=== PATIENT | female | born 1975 | race Caucasian/White ===

== ENCOUNTER 2025-04-28 14:56 | Outpatient (AMB) | payer OTHER, SELFPAY ==
--- NOTE | 2025-04-28 15:48 | A.OFFPC_ITS ---
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 patient was a spot on right side of nose. 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 ?? Prior PCP:? [facility] Last office visit/CPE:? 3 yrs ago Acute issue(s):? Spot on Side of nose ? Thyroid function ?? PMHx:? 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 1. Little interest or pleasure in doing things: not at all 2. Feeling down, depressed, or hopeless: not at all 3. Trouble falling or staying asleep, or sleeping too much: not at all 4. Feeling tired or having little energy: not at all 5. Poor appetite or overeating: not at all 6. Feeling bad about yourself - or that you are a failure or have let yourself or your family down: not at all 7. Trouble concentrating on things, such as reading the newspaper or watching television: not at all 8. Moving or speaking so slowly that other people could have noticed. Or the opposite - being so fidgety or restless that you have been moving around a lot more than usual: not at all 9. Thoughts that you would be better off or of hurting yourself in some way: not at all Total score: 0 Depression Screening Interpretation: Negative Depression Screening Done: Yes 89005 - PHQ-9 Billing: Yes Source: Developed by Drs. Walter Youngblood, Michela Higuera, Neymar Rahman and colleagues, with an educational hilary from [employer]. Thrive Questionnaire Date Thrive assessed: 04/28/25 I am a: Patient What is your living situation today?: I have a steady place to live Within the past 12 months, did the food you bought not last and you didn't have the money to get more?: Never true Within the past 12 months, did you worry whether your food would run out before you got money to buy more?: Never true Do you have trouble paying for medicines?: I choose not to answer this question Do you have trouble getting transportation to medical appointments?: No Do you have trouble paying your heating and electricity bill?: I choose not to answer this question Do you have trouble taking care of your child, family member or friend?: No Do you have trouble with day-to-day activities such as bathing, preparing meals, shopping, managing finances, etc.?: No Are you currently unemployed and looking for a job?: No Are you interested in more education?: No Please select the resources that you would like help with: None Currently or been in a relationship where the following occur: No concerns reported THRIVE Score: 0 AUDIT C Alcohol Use Questionnaire (AUDIT-C) 1. How often do you have a drink containing alcohol?: Monthly or less 2. How many drinks containing alcohol do you have on a typical day when you are drinking?: 1 or 2 3. How often do you have six or more drinks on one occasion?: Never Total Score: 1 WILLIAM-7 AMB Questionnaire WILLIAM-7 Date WILLIAM - 7 assessed: 04/28/25 Feeling nervous, anxious, or on edge: 0 = Not at all Not being able to stop or control worryin = Not at all Worrying too much about different things: 0 = Not at all Trouble relaxin = Not at all Being so restless that it is hard to sit still: 0 = Not at all Becoming easily annoyed or irritable: 0 = Not at all Feeling afraid as if something awful might happen: 0 = Not at all Total WILLIAM-7 score (0-4 normal; 5-9 mild; 10-14 moderate; 15-21 severe): 0 Source: Developed by Drs. Walter Youngblood, Michela Higuera, Neymar Rahman and colleagues, with an educational hilary from [employer]. WILLIAM-7 Assessment Billing WILLIAM-7 Assessment Tool: WILLIAM-7 Assessment 58219 Review of Systems Const Denies chills, Denies fatigue, Denies fever(s), Denies headache(s) and Denies weakness ENT Denies dizziness and Denies headache(s) Card Denies chest pain, Denies lightheadedness, Denies dyspnea and Denies other (Palpitations) Resp Denies cough, Denies dyspnea, Denies wheezing and Denies other ( shortness of breath) Musc Denies numbness and Denies tingling Neuro Denies dizziness, Denies headache(s), Denies numbness, Denies tingling, Denies paresthesias and Denies weakness Psych Denies anxiety and Denies depression Endo Denies fatigue Aller/Immun Denies wheezing Physical exam (Primary Care) Vital Signs: Last Vital Signs Temp 97.8 F 04/28/25 15:55 Pulse 74 04/28/25 15:55 Resp 15 04/28/25 15:55 BP 108/60 04/28/25 15:55 Pulse Ox 100 04/28/25 15:55 Oxygen Delivery Method Room Air 04/28/25 15:55 BMI result Body Mass Index 23.0 Tobacco/Smoking Status: Tobacco use Status Tobacco use date assessed 04/28/25 04/28/25 15:59 Patient Tobacco Use Status Never used Tobacco 04/28/25 15:59 PHQ-9: PHQ-9 Score PHQ-9: Total score 0 04/28/25 16:20 Depression Screening Interpretation: Negative Thrive Assessment: Date of Thrive Assessment Date Thrive assessed 04/28/25 04/28/25 15:59 Currently or been in a relationship where the following occur: No concerns reported Const General: no acute distress and well developed Nutritional Appearance: well nourished Orientation/consciousness: patient oriented x3 HENMT Head: Yes normocephalic and Yes atraumatic Eyes General: appearance normal, both eyes and all related structures Pupils: Equal, round and reactive pupils present EOM: EOMs intact bilaterally Resp Effort & Inspection: normal respiratory effort Auscultation: clear to auscultation bilaterally Cardio Rate: regular rate Rhythm: regular rhythm Heart sounds: S1 normal heart sound present, S2 normal heart sound present, no gallops, no murmurs and no rubs Neuro General: patient oriented x3 and gait normal Cranial nerves: Yes Equal, round and reactive pupils present Psych Affect: normal affect Coding Level of Care Code New Pt Level 3 (98230) Diagnoses History of basal cell cancer Z85.828 Neoplasm of uncertain behavior of skin D48.5 Screening for colon cancer Z12.11 Breast cancer screening by mammogram Z12.31 Screening for cervical cancer Z12.4 History of anemia Z86.2 Laboratory exam ordered as part of routine general medical examination Z00.00 Additional Codes WILLIAM-7 Assessment Billing - WILLIAM-7 Assessment Tool: WILLIAM-7 Assessment 89682 ([id number]) PHQ-9 - 49051 - PHQ-9 Billing: Yes ([id number]) Assessment & Plan Assessment & Plan (1) History of basal cell cancer: Code(s): Z85.828 - Personal history of other malignant neoplasm of skin Category: Medical Plan: History of basal cell cancer and patient has lump/neoplasm on right side of her news referred to dermatology (2) Neoplasm of uncertain behavior of skin: Code(s): D48.5 - Neoplasm of uncertain behavior of skin Category: Medical Plan: as above (3) Screening for colon cancer: Code(s): Z12.11 - Encounter for screening for malignant neoplasm of colon Category: Medical Plan: due for 1st screening colonoscopy referred to Gastroenterology (4) Breast cancer screening by mammogram: Code(s): Z12.31 - Encounter for screening mammogram for malignant neoplasm of breast Category: Medical Plan: mammogram ordered (5) Screening for cervical cancer: Code(s): Z12.4 - Encounter for screening for malignant neoplasm of cervix Category: Medical Plan: patient is not sexually active she has had no abnormal Pap smears in the past and says she has had a least 3 normal Pap smears in the last 10 years she would like to forego Pap smears at this point she will let me know if she changes her mind (6) History of anemia: Code(s): Z86.2 - Personal history of diseases of the blood and blood-forming organs and certain disorders involving the immune mechanism Category: Medical Plan: Check labs (7) History of anemia: Code(s): Z86.2 - Personal history of diseases of the blood and blood-forming organs and certain disorders involving the immune mechanism Category: Medical Plan: .. (8) Laboratory exam ordered as part of routine general medical examination: Code(s): Z00.00 - Encounter for general adult medical examination without abnormal findings Category: Medical Plan patient notes a history of abnormal thyroid lab tests she also notes a normal thyroid ultrasound will check thyroid hormone levels Orders: Orders Complete Blood Count Auto Diff Today Z00.00 - Encounter for general adult medical examination without abnormal findings Microalbumin, Random (w Creat) Today I10 - Essential (primary) hypertension Reticulocyte Count Today Z86.2 - Personal history of diseases of the blood and blood-forming organs and certain disorders involving the immune mechanism Comprehensive [place]. Panel Fast Today Z00.00 - Encounter for general adult medical examination without abnormal findings Lipid Panel Today Z00.00 - Encounter for general adult medical examination without abnormal findings UA CC w/rflx Micro + Cult Today Z00.00 - Encounter for general adult medical examination without abnormal findings Free T4 (Free Thyroxine) Today E03.9 - Hypothyroidism, unspecified Thyroid Stimulating Hormone Today E03.9 - Hypothyroidism, unspecified Triiodothyronine T3 Total Today E03.9 - Hypothyroidism, unspecified MM tomosynthesis screening BI Today Z12.31 - Encounter for screening mammogram for malignant neoplasm of breast IRON PROFILE Today Z86.2 - Personal history of diseases of the blood and blood- forming organs and certain disorders involving the immune mechanism Vitamin B12 and Folate Today E53.8 - Deficiency of other specified B group stefanie mins, Z86.2 - Personal history of diseases of the blood and blood-forming organs and certain disorders involving the immune mechanism Referrals Gastroenterology Referral Z12.11 - Encounter for screening for malignant neoplasm of colon Dermatology Referral D48.5 - Neoplasm of uncertain behavior of skin
[2025-04-28 15:55] VITALS: BP 108/60; PULSE 74; RESP 15; TEMP 36.6; O2SAT 100; BMI 23.0
== END 2025-04-28 16:48 | disposition home or self-care (01) ==
LOC: HO.HMCFM 14:57
PROVIDERS: PCP Family Medicine; Visit Provider Family Medicine
DX: Z85.828 Personal history of other malignant neoplasm of skin (principal); D48.5 Neoplasm of uncertain behavior of skin; Z12.11 Encounter for screening for malignant neoplasm of colon; Z12.31 Encounter for screening mammogram for malignant neoplasm of breast; Z12.4 Encounter for screening for malignant neoplasm of cervix; Z86.2 Personal history of diseases of the blood and blood-forming organs and certain disorders involving the immune mechanism; Z00.00 Encounter for general adult medical examination without abnormal findings

== ENCOUNTER → 2025-04-28 14:56 | Outpatient (BNVA) | payer OTHER, SELFPAY | PROVIDERS: PCP Family Medicine; Visit Provider Family Medicine | DX: Z76.89 Persons encountering health services in other specified circumstances (principal); Z85.828 Personal history of other malignant neoplasm of skin; Z86.2 Personal history of diseases of the blood and blood-forming organs and certain disorders involving the immune mechanism | CPT/HCPCS: 96127 ==

== ENCOUNTER 2025-06-14 08:00 | Outpatient (REF) | payer OTHER, SELFPAY ==
--- OUTSIDE RECORDS SUMMARY | 2025-06-14 08:04 | XMS_ITS | Clinical Summary ---
Author Organization [facility] Address [address] [place] [address] Care Team Providers Care Celebrity Chef Entrepreneur Media Personality Name Role Phone Rossy Yeh DO Primary Care Provider [phone] Surgical History Surgery Date Site/Laterality Comments OTHER SURGICAL HISTORY PROCEDURE: HISTORY OTHER; COMMENT: basal cell carcinoma-right forehead Medical History Medical History Date Comments History of anemia DX:History of anemia Family history of thyroid disorder DX:Family history of thyroid disorder History of basal cell carcin jose raul (BCC) excision DX:History of basal cell car cinoma (BCC) excision Hyperlipidemia 11/26/2022 DX:Hyperlipidemi a; COMMENT: Lab Results Component Value Date CHOL 243 11/22/2022 LDL 165 11/22/2022 HDL 57 11/22/2022 TRIG 106 11/22/2022 Family History Medical History Relation Name Comments Hypertension Brother 1 No Known Problems Brother 2 Prostate cancer Father Thyroid disease Father Hypertension Mother Relation Name Status Comments Brother 1 Alive Brother 2 Alive Father Alive Maternal Grandfather Maternal Grandmother Mother Alive Paternal Grandfather Paternal Grandmother Social History Tobacco Use Types Packs/Day Years Used Date Smoking Tobacco: Never Smokeless Tobacco: Never Alcohol Use Standard Drinks/Week Comments Yes 0 (1 standard drink = 0.6 oz pur e alcohol) Comments Unknown Sex and Gender Information Value Date Recorded Sex Assigned at Not on file Legal Sex Female 8:30 AM EDT Gender Identity Not on file Sexual Orientation Not on file Obstetrics History Last Filed Vital Signs Vital Sign Reading Time Taken Comments Blood Pressure 110/66 07/18/2023 1:01 PM EDT Pulse 81 07/18/2023 1:01 PM EDT Temperature - - Respiratory Rate - - Oxygen Saturation - - Inhaled Oxygen Concentration - - Weight 66.8 kg (147 lb 3.2 oz) 07/18/2023 1:01 P M EDT Height 165.1 cm (5' 5 ) 07/18/2023 1:01 PM EDT Body Mass Index 24.5 07/18/2023 1:01 PM EDT Plan of Treatment Health Maintenance Due Date Last Done Comments Breast Cancer Screening 1973 DTaP,Tdap,and Td Vaccines (1 - Tdap) 1992 Hepatitis B Vaccines (1 of 3 - 19+ 3-dose series) 1992 Cervical Cancer Screening: P ap Smear 1994 Cholesterol Screening (Lipid Panel) 08/06/2022 Colorectal Cancer Screening: Colonoscopy 08/06/2022 Depression Screening 08/06/2022 HIV Screening 08/06/2022 Hepatitis C Screening 08/06/2022 Social Influencers of Health Screening 08/06/2022 Pneumococcal Vaccine: 50+ Ye ars (1 of 1 - PCV) 2023 Zoster Vaccines (1 of 2) 2023 COVID-19 Vaccine (1 - 2023-2 5 season) 2024 Influenza Vaccine (#1) 2025 HIB Vaccines Aged Out No longer eligi ble based on patient's age to complete this topic HPV Vaccines Aged Out No longer eligi ble based on patient's age to complete this topic Hepatitis A Vaccines Aged Out No long er eligible based on patient's age to complete this topic IPV Vaccines Aged Out No longer eligi ble based on patient's age to complete this topic MMR Vaccines Aged Out No longer eligi ble based on patient's age to complete this topic Meningococcal ACWY Vaccine Aged Out N o longer eligible based on patient's age to complete this topic Meningococcal B Vaccine Aged Out No l onger eligible based on patient's age to complete this topic RSV Immunization Patients Un cedric 20 months Aged Out No longer eligible b ased on patient's age to complete this topic Varicella Vaccines Aged Out No longer eligible based on patient's age to complete this topic Care Teams Celebrity Chef Entrepreneur Media Personality Relationship Specialty Start Date End Date Rossy Yeh DO [address] [place] [address] PCP - General 07/01/22
[2025-06-14 10:19] LABS: MANUAL DIFF FLAG NO
[2025-06-14 10:21] LABS: Appearance Urine Clear; Glucose Urine UA Negative (Negative); PH 7.5 (5.0-9.0); Specific Gravity - Urine <= 1.005 (1.005-1.025)
[2025-06-14 10:45] LABS: Hematocrit 37.8 % (37.0-47.0); Hemoglobin 12.6 g/dl (12.0-16.0); Imm Gran Abs Auto 0.01 X10*3/uL (0.00-0.03); Imm Gran Pct Auto 0.2 % (0.0-0.4); Lymphocytes Absolute Auto 1.8 X10*3/uL (1.2-4.9); Mean Corpuscular HGB Conc 33.3 g/dl (31.0-35.0); Mean Corpuscular Hemoglobin 28.1 pg (27.0-33.0); Mean Corpuscular Volume 84.4 fL (80.0-98.0); NRBC Abs Auto 0.000 X10*3/uL (0.0-0.012); NRBC Pct Auto 0.0 /100WBC (0.0-0.2); Platelet Count 228 X10*3/uL (160-400); Red Blood Count 4.48 X10*6/uL (4.20-5.50); Reticulocytes Absolute 0.040 X10*6/uL (0.026-0.095); White Blood Count 5.0 X10*3/uL (4.8-10.8)
[2025-06-14 10:56] LABS: Alanine Aminotransferase 12 U/L (0-31); Albumin Level 4.7 g/dL (3.5-5.0); Alkaline Phosphatase 59 U/L (39-117); Anion Gap 11 (12-20); Aspartate Amino Transferase 23 U/L (5-31); Blood Urea Nitrogen 8 mg/dL (9-16); Calcium 9.6 mg/dL (8.4-10.2); Carbon Dioxide 28 mmol/L (22-29); Chloride 104 mmol/L (96-108); Cholesterol 230 mg/dL (<200); Estimated Glomerular Filt Rate > 60; HDL Cholesterol 60 mg/dL (>40); Iron 67 mcg/dL (30-160); Percent Iron Saturation 25 % (15-50); Potassium 4.3 mmol/L (3.3-5.1); Sodium 139 mmol/L (135-145); Total Iron Binding Capacity 265 mcg/dL (228-428); Total Protein 7.6 g/dL (6.5-8.0); Triglycerides 108 mg/dL (<150); Unsaturated Iron Binding 198 ug/dL
[2025-06-14 11:14] LABS: Free T4 (Free Thyroxine) 1.08 ng/dL (0.71-1.85); Thyroid Stimulating Hormone 2.19 uIU/mL (0.32-4.0)
[2025-06-14 11:19] LABS: Folate 13.8 ng/mL (> or = 4.0); Vitamin B12 531 pg/mL (200-900)
== END 2025-06-14 08:01 | disposition home or self-care (01) ==
LOC: HO.HMGCLDS 08:00
PROVIDERS: PCP Family Medicine; Visit Provider Family Medicine
DX: Z00.00 Encounter for general adult medical examination without abnormal findings (principal); I10 Essential (primary) hypertension; E03.9 Hypothyroidism, unspecified; E53.8 Deficiency of other specified B group vitamins; Z86.2 Personal history of diseases of the blood and blood-forming organs and certain disorders involving the immune mechanism
CPT/HCPCS: 36415; 80053; 80061; 81003; 82043; 82570; 82607; 82746; 83540; 84439; 84443; 84480; 85025; 85045

== ENCOUNTER 2025-07-27 09:27 | Outpatient (AMB) | payer OTHER, SELFPAY ==
--- NOTE | 2025-07-27 09:37 | A.OFFVIS_ITS ---
Vital Signs 07/27/25 09:39 Height 5 ft 5 in Weight 133 lb BMI 22.1 BP 98/58 L Blood Pressure Location Lt brachial Position Sitting Pulse 76 Pulse Oximetry (%) 98 Oxygen Delivery Method Room Air Intake Visit Reasons: Colonoscopy screening Intake Note: Patient new consult for 1st pr Colonoscopy screening. Patient cc: heartburn on and off and constipation come and go. Denies any other GI issues. 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 Referred by PCP for pre colonoscopy screening. Report prior hx of Sigmoidoscopy in her 20s ([facility]) due to concern for blood in stool, states findings were normal. Shares a chronic issue with constipation characterized by small amounts of hard stools and incomplete evacuation, although stool consistency recently became looser, likely related to an increase in vegetable intake. No blood in stool noted, and she does not rely on medications for relief, preferring dietary adjustments such as increased f iber. Aiyana describes intermittent mild soreness or pressure in the right lower quadrant, which has occurred very infrequently over the past decade. Discomfort typically appears after eating, without associated nausea, vomiting, or systemic symptoms, and most prior imaging (e.g., RUQ ultrasound) was reported normal. She mentions mild heartburn approximately once or twice monthly, managed effe ctively with occasional Tums, and suspects coffee consumption (around four cups daily) might contribute to symptoms. There are no complaints of significant abdominal pain, nausea, vomiting, regurgitation, swallowing difficulties, or unexplained weight loss. Social hx: -Drinks wine 1?2x per week -denies recreational drug use -non-smoker - family hx as below -denies significant cardiopulmonary history -tolerated anesthesia in the past without difficulty. 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 Current occupational exposures/hazards: No Cognitive needs: No Hearing needs: No Vision needs: No Review of Systems Const Reports as per HPI ENT Reports as per HPI Card Reports as per HPI Resp Reports as per HPI GI Reports as per HPI Reports as per HPI Physical Exam Vital Signs: Last Vital Signs Pulse 76 07/27/25 09:39 BP 98/58 L 07/27/25 09:39 Pulse Ox 98 07/27/25 09:39 Oxygen Delivery Method Room Air 07/27/25 09:39 BMI result Body Mass Index 22.1 Const General: healthy appearing, no acute distress and well developed Nutritional Appearance: average body habitus Orientation/consciousness: patient oriented x3 HEENT Head: Yes normal to inspection, Yes normocephalic and Yes atraumatic Face and sinus: Yes normal facial exam Eyes General: appearance normal, both eyes and all related structures Neck Neck: Yes normal visual inspection Resp Effort & Inspection: normal respiratory effort, able to speak in complete sentences, no tracheal deviation and symmetric chest movement Auscultation: clear to auscultation bilaterally Cardio Jugular venous distension: no JVD Rate: regular rate Rhythm: regular rhythm Heart sounds: S1 normal heart sound present, S2 normal heart sound present, no gallops and no murmurs GI Inspection: Yes normal to inspection and No distended Palpation (GI): Soft to palpation, not firm, nontender, No hepatosplenomegaly present and No Rebound tenderness present Auscultation: normal bowel sounds Neuro General: patient oriented x3 Gait exam (Neuro): Normal gait present Psych Appearance: grossly normal Mental Status: mental status grossly normal Speech and movement: Normal speech and movement present Affect: normal affect Attitude: cooperative Thought process: Normal thought process present Thought content: Normal thought content present Insight: Good insight present (Psych) Judgement: Good judgement present (Psych) Assessment & Plan Assessment & Plan (1) Screening for colon cancer: Code(s): Z12.11 - Encounter for screening for malignant neoplasm of colon Category: Medical Plan: Due for routine CRC screening. Educated that effective constipation management is critical to ensure adequate bowel prep and diagnostic yield for colonoscopy. Medications: -prescriptions for laxative tablets and MiraLax sent to pharmacy; instructions for Gatorade purchase and clear liquid diet given. Patient educated on scheduling process, procedure preparation, including avoiding certain foods and ensuring clear liquid intake Advised on necessity for ride post-procedure due to sedation. (2) Constipation: Code(s): K59.00 - Constipation, unspecified Category: Medical Qualifiers: Constipation type: unspecified constipation type Qualified Code(s): K59.00 - Constipation, unspecified Plan: Longstanding history with incomplete evacuation and hard stools; improvement with fiber intake noted Additional Testing: None at this time unless symptoms worsen Medication Management: Probiotic recommended; prescription sent. Can purchase generic probiotic if not covered by insurance. Lifestyle Recommendations: Increase dietary fiber (fruits, vegetables, beans, legumes, nuts); continue hydration with hot water; consider OTC fiber supplements if dietary adjustments insufficient Follow-Up: Notify if symptoms worsen or dietary strategies fail (3) RLQ discomfort: Code(s): R10.31 - Right lower quadrant pain Category: Medical Plan: Mild recurring soreness without concerning or classical symptoms; no reproducibility on exam; reports of normal past imaging studies Additional Testing: No immediate testing; repeat imaging only if recurrence increases with associated symptoms such as nausea, vomiting, or changes in bowel movements Medication Management: None Lifestyle Recommendations: Monitor for food or activity-related triggers and escalate care if symptoms intensify or present consistently Follow-Up: Notify promptly of new or intensifying symptoms (4) Mild acid reflux: Code(s): K21.9 - Gastro-esophageal reflux disease without esophagitis Category: Medical Plan: Infrequent mild heartburn (1?2x/month) managed with Tums; potential correlation with coffee intake Additional Testing: None needed at this time Medication Management: Continue PRN Tums; avoid triggers (acidic, spicy, and greasy foods; alcohol; coffee reduction suggested) Lifestyle Recommendations: Gradually reduce coffee consumption; monitor symptoms for frequency or escalation Follow-Up: Report any changes in severity or frequency Plan Follow-up after colonoscopy or sooner as needed Time: I spent a total of 30 minutes on the date of encounter which includes: Preparing to see the patient (reviewed previous documentation, test results and medical history) Performing a medically appropriate exam and/or evaluation Ordering medications, tests, and procedures Documenting clinical information in the health record Medications: New Lactobacillus acidophilus Take once tablet daily 10,000 mmu cells PO DAILY 90 caps 3RF polyethylene glycol 3350 (Miralax) per colonoscopy prep instructions 238 grams PO ONCE 238 grams 0RF bisacodyl (Dulcolax (bisacodyl)) Take four tablets pre colonoscopy instructions 20 mg (4 x 5 mg) PO ONCE 4 tabs 0RF 1 day Coding Level of Care Code New Pt New Pt Level 3 (71760) Patient Type New Diagnoses Screening for colon cancer Z12.11 Constipation, unspecified constipation type K59.00 Constipation type: unspecified constipation type RLQ discomfort R10.31 Mild acid reflux K21.9
[2025-07-27 09:39] VITALS: BP 98/58; PULSE 76; O2SAT 98; BMI 22.1
--- OUTSIDE RECORDS SUMMARY | 2025-07-27 10:04 | XMS_ITS | Clinical Summary ---
Author Organization Patient Business Ser [facility] Address [address] [place] [address] Care Team Providers Care Weblogic Developer Name Role Phone Rossy Yeh DO Primary Care Provider [phone] Surgical History Surgery Date Site/Laterality Comments OTHER [...] Panel) 08/06/2022 Colorectal Cancer Screening: Colonoscopy 08/06/2022 HIV Screening 08/06/2022 Hepatitis C Screening 08/06/2022 Social Influencers of Health Screening 08/06/2022 Pneumococcal Vaccine: 50+ Ye ars (1 of 1 - PCV) 2023 Zoster Vaccines (1 of 2) 2023 COVID-19 Vaccine (1 - 2023-2 5 season) 2024 Depression Screening 12/01/2024 Influenza Vaccine (#1) 2025 HIB Vaccines Aged [...] age to complete this topic Care Teams Weblogic Developer Relationship Specialty Start Date End Date Rossy Yeh DO [address] [place] [address] PCP - General 07/01/22
--- OUTSIDE RECORDS SUMMARY | 2025-07-27 10:04 | XMS_ITS ---
Author Name [facility] Organization Unknown Care Team Organization Name Specialty Phone Email Start Date End Da te [facility] Brittany Cano Primary Care 10/08/2022 07/19/2024
== END 2025-07-27 10:07 | disposition home or self-care (01) ==
LOC: HO.HGI 09:27
PROVIDERS: PCP Family Medicine; Visit Provider Nurse Practitioner Family
DX: Z01.818 Encounter for other preprocedural examination (principal); Z12.11 Encounter for screening for malignant neoplasm of colon; K59.00 Constipation, unspecified; R10.31 Right lower quadrant pain; K21.9 Gastro-esophageal reflux disease without esophagitis
CPT/HCPCS: 99203

== ENCOUNTER 2025-08-23 08:52 | Outpatient (AMB) | payer OTHER, SELFPAY ==
--- NOTE | 2025-08-23 08:59 | A.OFFPC_ITS ---
Vital Signs 08/23/25 09:20 Height 5 ft 5 in Weight 135 lb 4 oz BMI 22.5 BP 108/78 Blood Pressure Location Rt brachial Position Sitting Respiration 14 Pulse 73 Pulse Source Pulse Oximeter Temp 97.7 F Temp Source Temporal Artery Scan Pulse Oximetry (%) 98 Oxygen Delivery Method Room Air Intake Visit Reasons: CPE with f/u labs and health maint. Intake Note: Aiyana presents in the office today for her annual physical and a follow up to her labs. Allergies Sulfa (Sulfonamide Antibiotics) Adverse Reaction (Mild, Verified 08/23/25 09:17) Confusion Medication List - Last Reconciled 08/23/25 by Fabien Rosenberg MD ascorbic acid-zinc sulfate 100-200 mg 1 tab PO DAILY Lactobacillus acidophilus 10,000 mmu cells PO DAILY multivitamin 1 tab PO DAILY zinc acetate (Galzin) 50 mg PO DAILY Tobacco use date assessed: 08/23/25 Dental Screening Dental Screen Date: 08/23/25 Did you have a dental visit in the last 12 months?: Yes Did you have a dental problem in the last 6 months where you did not have access to dental care?: No Was dental information given to patient?: Patient has dentist HPI CPE with f/u labs and health maint. HPI Details 50 y/o female presents for a CPE with f/ u labs and health maint. Labs drawn 06/14/25. Reviewed labs with pt. Triglycerides 108. TC 230. LDL 149. HDL 60. HPI Comments History of Present Illness Details Documentation assistance for Fabien Rosenberg MD, was provided by Golden Choi,Reginald Debone Supervisor on 08/23/2025 at 9:[address] Chet JOHNSON, have read, obser le, and verified documentation. 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 Current occupational exposures/hazards: No Cognitive needs: No Hearing needs: No Vision needs: No Questionnaire Thrive Questionnaire Date Thrive assessed: 04/28/25 I am a: Patient What is your living situation today?: I have a steady place to live Within the past 12 months, did the food you bought not last and you didn't have the money to get more?: Never true Within the past 12 months, did you worry whether your food would run out before you got money to buy more?: Never true Do you have trouble paying for medicines?: I choose not to answer this question Do you have trouble getting transportation to medical appointments?: No Do you have trouble paying your heating and electricity bill?: I choose not to answer this question Do you have trouble taking care of your child, family member or friend?: No Do you have trouble with day-to-day activities such as bathing, preparing meals, shopping, managing finances, etc.?: No Are you currently unemployed and looking for a job?: No Are you interested in more education?: No Please select the resources that you would like help with: None Currently or been in a relationship where the following occur: No concerns reported THRIVE Score: 0 WILLIAM-7 AMB Questionnaire WILLIAM-7 Date WILLIAM - 7 assessed: 04/28/25 Source: Developed by Drs. Walter Youngblood, Michela Higuera, Neymar Rahman and colleagues, with an educational hilary from [employer]. Review of Systems Const Denies chills, Denies fatigue, Denies fever(s), Denies headache(s) and Denies weakness Eyes Denies change in vision ENT Denies dizziness, Denies headache(s), Denies hearing loss, Denies nasal congestion, Denies sinus pain, Denies sinus pressure and Denies sore throat Card Denies chest pain, Denies lightheadedness, Denies dyspnea and Denies other (palpitations) Resp Denies cough, Denies dyspnea and Denies wheezing GI Denies abdominal pain, Denies melena, Denies hematochezia, Denies change in bowel habits, Denies dyspepsia and Denies nausea Denies hematuria and Denies dysuria Musc Denies abnormal gait, Denies myalgias, Denies arthralgias, Denies numbness and Denies tingling Skin/Breast Denies rash, Denies unusual bruising and Denies wounds Neuro Denies abnormal gait, Denies dizziness, Denies headache(s), Denies memory loss, Denies numbness, Denies Sensory deficit (Neuro), Denies tingling and Denies weakness Psych Denies anxiety, Denies depression and Denies memory loss Endo Denies cold intolerance, Denies fatigue, Denies heat intolerance, Denies polydipsia and Denies polyuria David/Lymph Denies easy bleeding and Denies easy bruising Aller/Immun Denies wheezing Physical exam (Primary Care) Vital Signs: Last Vital Signs Temp 97.7 F 08/23/25 09:20 Pulse 73 08/23/25 09:20 Resp 14 08/23/25 09:20 BP 108/78 08/23/25 09:20 Pulse Ox 98 08/23/25 09:20 Oxygen Delivery Method Room Air 08/23/25 09:20 BMI result Body Mass Index 22.5 Tobacco/Smoking Status: Tobacco use Status Tobacco use date assessed 08/23/25 08/23/25 09:23 Patient Tobacco Use Status Never used Tobacco 08/23/25 09:20 e-Cigarette/Vaping Use Never Used 08/23/25 09:23 Thrive Assessment: Date of Thrive Assessment Date Thrive assessed 04/28/25 08/23/25 08:59 Currently or been in a relationship where the following occur: No concerns reported Const General: no acute distress, well developed, alert and awake Nutritional Appearance: well nourished Orientation/consciousness: patient oriented x3 HENMT Head: Yes normocephalic and Yes atraumatic Ears: hearing grossly normal bilaterally and TM's normal bilaterally General nose exam: Normal external nose present and Normal nares present Mouth: Normal oral and palatal mucosa present and moist mucous membranes Teeth and gingiva: dentition normal Throat: Yes posterior oropharynx normal Eyes General: appearance normal, both eyes and all related structures Pupils: Equal, round and reactive pupils present and Pupil accommodation reflex normal EOM: EOMs intact bilaterally Neck Neck: Yes normal visual inspection, Yes no lymphadenopathy and Yes trachea midline Thyroid: Thyroid normal Carotids: no bruits Lymphatic: no lymphadenopathy noted Chest Chest palpation & inspection: normal inspection of the chest Resp Effort & Inspection: normal respiratory effort Auscultation: clear to auscultation bilaterally Cardio Rate: regular rate Rhythm: regular rhythm Heart sounds: S1 normal heart sound present, S2 normal heart sound present, no gallops, no murmurs and no rubs Bruits: no abdominal aortic bruits and no carotid bruits GI Palpation (GI): No Abdominal aortic bruit present, Soft to palpation, nontender, No hepatosplenomegaly present and No Rebound tenderness present Auscultation: normal bowel sounds General: Yes no CVA tenderness Back/Spine/Pelvis Back: no CVA tenderness Cervical Spine: cervical ROM normal and No Cervical spine tenderness Thoracic/Lumbar Spine: thoraco-lumbar ROM normal, No pain with thoraco-lumbar ROM, No thoracic spinal tenderness and No lumbar spinal tenderness Skin Lesions: no lesions Rashes: no rashes Trauma: no lacerations or abrasions Wounds: no wounds Nails: normal Neuro General: patient oriented x3 Cranial nerves: Yes Equal, round and reactive pupils present Cognition (Neuro): normal cognition Gait exam (Neuro): Normal gait present Motor exam (neuro): 5/5 motor strength present throughout Sensory Exam: No Sensory deficit (Neuro) Deep tendon reflexes (DTR's): Right patellar reflex intensity grade: 2+ and Left patellar reflex intensity grade: 2+ Extrem General: Yes normal to inspection and No edema Psych Appearance: grossly normal Affect: normal affect Attitude: cooperative Thought process: Normal thought process present Coding Level of Care Code Est Pt Level 3 (49321) Est Pt Prev Care 40-64y(08615) Diagnoses Adult general medical exam Z00.00 Hypercholesteremia E78.00 Screening for colon cancer Z12.11 Breast cancer screening by mammogram Z12.31 Screening for cervical cancer Z12.4 Assessment & Plan Assessment & Plan (1) Adult general medical exam: Code(s): Z00.00 - Encounter for general adult medical examination without abnormal findings Category: Medical Plan: 50-year-old female presents for complete physical exam Exam within normal limits Encouraged healthy diet with active lifestyle and plenty of exercise (2) Hypercholesteremia: Code(s): E78.00 - Pure hypercholesterolemia, unspecified Category: Medical Plan: LDL cholesterol is too high Encouraged diet lower in saturated fats and cholesterol and we will recheck this with her next visit Discussed if lipids are still significantly elevated, we should consider medication to control this (3) Screening for colon cancer: Code(s): Z12.11 - Encounter for screening for malignant neoplasm of colon Category: Medical Plan: Follow-up with Gastroenterology for colonoscopy Encouraged patient call for appointment (4) Breast cancer screening by mammogram: Code(s): Z12.31 - Encounter for screening mammogram for malignant neoplasm of breast Category: Medical Plan: Mammogram was ordered. Encouraged patient to call for scheduling (5) Screening for cervical cancer: Code(s): Z12.4 - Encounter for screening for malignant neoplasm of cervix Category: Medical Plan: Patient currently not sexually active and wants to hold off on referral to multigraph operator Pap smears We can readdress at a subsequent visit. I let know she can request a referral any time. Orders: Orders Lipid Panel Today E78.00 - Pure hypercholesterolemia, unspecified, Z00.00 - Encounter for general adult medical examination without abnormal findings Comprehensive [place]. Panel Fast Today E78.00 - Pure hypercholesterolemia, unspecified, Z00.00 - Encounter for general adult medical examination without abnormal findings Referrals Audiology Referral H91.90 - Unspecified hearing loss, unspecified ear
[2025-08-23 09:20] VITALS: BP 108/78; PULSE 73; RESP 14; TEMP 36.5; O2SAT 98; BMI 22.5
--- OUTSIDE RECORDS SUMMARY | 2025-08-23 10:04 | XMS_ITS | Clinical Summary ---
Author Organization Patient Business Ser [facility] Address [address] [place] [address] Care Team Providers Care Operations Consultant Name Role Phone Rossy Yeh DO Primary Care Provider [phone] Surgical History Surgery Date Site/Laterality Comments OTHER [...] 2023 Zoster Vaccines (1 of 2) 2023 Depression Screening 12/01/2024 COVID-19 Vaccine (1 - 2023-2 5 season) 2025 Influenza Vaccine (#1) 2025 HIB Vaccines Aged [...] age to complete this topic Care Teams Operations Consultant Relationship Specialty Start Date End Date Rossy Yeh DO [address] [place] [address] PCP - General 07/01/22
== END 2025-08-23 09:56 | disposition home or self-care (01) ==
LOC: HO.HMCFM 08:53
PROVIDERS: PCP Family Medicine; Visit Provider Family Medicine
DX: Z00.00 Encounter for general adult medical examination without abnormal findings (principal); E78.00 Pure hypercholesterolemia, unspecified; Z12.11 Encounter for screening for malignant neoplasm of colon; Z12.31 Encounter for screening mammogram for malignant neoplasm of breast

== ENCOUNTER 2025-09-30 13:02 | Outpatient (REF) | payer OTHER, SELFPAY | END 2025-09-30 13:03 | disposition home or self-care (01) | LOC: HO.MAMMO 13:02 | PROVIDERS: PCP Family Medicine; Visit Provider Family Medicine | DX: Z12.31 Encounter for screening mammogram for malignant neoplasm of breast (principal) | CPT/HCPCS: 77063; 77067 ==

== ENCOUNTER → 2025-09-30 13:15 | Outpatient (BNV) | payer OTHER, SELFPAY | PROVIDERS: PCP Family Medicine; Visit Provider Internal Medicine | DX: Z12.31 Encounter for screening mammogram for malignant neoplasm of breast (principal) | CPT/HCPCS: 77063; 77067 ==